=== PATIENT | male | born 1960 | race Caucasian/White ===

== ENCOUNTER 2020-11-24 00:31 | Inpatient (IN) | payer OTHER ==
[~2020-11-24] VITALS: Ht 182.9 cm; Wt 101.6 kg
[~2020-11-24 00:31] MED LIST: ADULT LOW DOSE81 MG PO; CLONIDINE HCL0.3 MG PO; CLOPIDOGREL75 MG PO; COREG12.5 MG PO; CRESTOR20 MG PO; IMDUR ER TAB 6060 MG PO; ISOSORBIDE MONO30 MG PO; KLONOPIN1 MG PO; NORVASC10 MG PO; PROZAC40 MG PO; VENTOLIN HFA 66.7 GM INH; ZESTRIL 40 MG T40 MG PO
[2020-11-24 00:54] LABS: HEMOGLOBIN 14.2 gm/dl (14.0-17.5); RED BLOOD COUNT 4.64 M/UL (4.20-5.50); WHITE BLOOD COUNT 6.7 K/UL (4.5-11.0)
[2020-11-24 01:12] LABS: BUN/CREATININE RATIO 24 (0-10)
[2020-11-24] MEDS ORDERED: NITROSTAT0.4 MG SL (11:14)
[2020-11-24] MEDS ORDERED: DAILY VITE1 EACH PO (11:17)
[2020-11-25 02:08] LABS: HEMOGLOBIN 12.4 gm/dl (14.0-17.5); WHITE BLOOD COUNT 6.7 K/UL (4.5-11.0)
[2020-11-25 02:11] LABS: RED BLOOD COUNT 4.12 M/UL (4.20-5.50)
[2020-11-25 02:34] LABS: BUN/CREATININE RATIO 16 (0-10)
[2020-11-25] MEDS ORDERED: PROZAC40 MG PO (15:15)
[2020-11-25] MEDS ORDERED: VENTOLIN HFA 66.7 GM INH (15:15)
[2020-11-25] MEDS ORDERED: ISOSORBIDE MONO60 MG PO (15:15)
[2020-11-25] MEDS ORDERED: NORVASC10 MG PO (15:15)
[2020-11-25] MEDS ORDERED: CLOPIDOGREL75 MG PO (15:15)
[2020-11-25] MEDS ORDERED: ADULT LOW DOSE81 MG PO (15:15)
[2020-11-25] MEDS ORDERED: ZESTRIL 40 MG T40 MG PO (15:15)
[2020-11-25] MEDS ORDERED: COREG12.5 MG PO (15:15)
[2020-11-25] MEDS ORDERED: NITROSTAT0.4 MG SL (15:15)
[2020-11-25] MEDS ORDERED: CRESTOR20 MG PO (15:15)
[2020-11-25] MEDS ORDERED: KLONOPIN1 MG PO (15:18)
== END 2020-11-25 16:15 | disposition home or self-care (01) | DRG 246 ==
LOC: ER1 00:31 → PROG CARE 01:31 → CDU 01:31 → PROG CARE 05:12
PROVIDERS: Emergency Medicine; Internal Medicine Interventional Cardiology; ADMIT Internal Medicine
PROC: 027034Z Dilation of Coronary Artery, One Artery with Drug-eluting Intraluminal Device, Percutaneous Approach (ICD-10-PCS; principal; 2020-11-24)
PROC: 4A023N7 Measurement of Cardiac Sampling and Pressure, Left Heart, Percutaneous Approach (ICD-10-PCS; 2020-11-24)
PROC: B2111ZZ Fluoroscopy of Multiple Coronary Arteries using Low Osmolar Contrast (ICD-10-PCS; 2020-11-24)
PROC: B2151ZZ Fluoroscopy of Left Heart using Low Osmolar Contrast (ICD-10-PCS; 2020-11-24)
DX: I97.190 Other postprocedural cardiac functional disturbances following cardiac surgery (principal); I21.A9 Other myocardial infarction type; T82.855A Stenosis of coronary artery stent, initial encounter; I25.110 Atherosclerotic heart disease of native coronary artery with unstable angina pectoris; Y71.8 Miscellaneous cardiovascular devices associated with adverse incidents, not elsewhere classified; I10 Essential (primary) hypertension; E78.5 Hyperlipidemia, unspecified; F41.9 Anxiety disorder, unspecified; F32.9 Major depressive disorder, single episode, unspecified; I16.0 Hypertensive urgency; Z20.822 Contact with and (suspected) exposure to COVID-19; Z82.49 Family history of ischemic heart disease and other diseases of the circulatory system; Z98.890 Other specified postprocedural states; F17.210 Nicotine dependence, cigarettes, uncomplicated; Z79.82 Long term (current) use of aspirin; Z79.4 Long term (current) use of insulin; Z79.899 Other long term (current) drug therapy
CPT/HCPCS: 36415; 71045; 80048; 80053; 82550; 82553; 83874; 84484; 85025; 85027; 85347; 85610; 85730; 93005; 96374; 96375; 99152; 99153; 99285; C1725; C1760; C1769; C1874; C1887; C9600; J0461; J1644; J2250; J3010; J7030; Q9963; Q9967; U0002

== ENCOUNTER → 2021-02-11 | Outpatient (CLI) | payer OTHER ==
[~2021-02-11] MED LIST changes: +ASPIRIN EC81 MG PO; +ATORVASTATIN CA20 MG PO; +BRILINTA 90 MG90 MG PO; +CLONAZEPAM1 MG PO; +CLONIDINE HCL0.2 MG PO; +CRESTOR40 MG PO; +DAILY VITE1 EACH PO; +ISOSORBIDE MON120 MG PO; +ISOSORBIDE MONO60 MG PO; +LOSARTAN-HCTZ1 EAC1 PO; +MEN'S MULTIVIT1 EACH PO; +NICOTINE PATCH1 EAC2 TOP; +NITROGLYCERIN0.4 MG SL; +NITROSTAT0.4 MG SL; +VITAMIN D31250 MCG PO
== END ==
LOC: HEART 5 13:25
DX: I25.10 Atherosclerotic heart disease of native coronary artery without angina pectoris (principal); R00.2 Palpitations

== ENCOUNTER → 2021-02-13 | Outpatient (CLI) | payer OTHER | LOC: ECHO 11:00 | DX: I25.10 Atherosclerotic heart disease of native coronary artery without angina pectoris (principal); I07.1 Rheumatic tricuspid insufficiency | CPT/HCPCS: ECHO; 93306 ==

== ENCOUNTER 2021-02-24 03:12 | Observation (INO) | payer OTHER ==
[~2021-02-24] VITALS: Ht 188 cm; Wt 84.4 kg
[~2021-02-24 03:12] MED LIST changes: -ASPIRIN EC81 MG PO; -ATORVASTATIN CA20 MG PO; -BRILINTA 90 MG90 MG PO; -CLONAZEPAM1 MG PO; -CLONIDINE HCL0.2 MG PO; -CRESTOR40 MG PO; -ISOSORBIDE MON120 MG PO; -LOSARTAN-HCTZ1 EAC1 PO; -MEN'S MULTIVIT1 EACH PO; -NICOTINE PATCH1 EAC2 TOP; -NITROGLYCERIN0.4 MG SL; -VITAMIN D31250 MCG PO
[2021-02-24 04:04] LABS: HEMOGLOBIN 14.6 gm/dl (14.0-17.5); RED BLOOD COUNT 4.76 M/UL (4.20-5.50); WHITE BLOOD COUNT 8.9 K/UL (4.5-11.0)
[2021-02-24] MEDS ORDERED: ISOSORBIDE MON120 MG PO (09:13)
[2021-02-24] MEDS ORDERED: MEN'S MULTIVIT1 EACH PO (09:16)
[2021-02-24] MEDS ORDERED: CRESTOR40 MG PO (09:16)
[2021-02-24] MEDS ORDERED: VITAMIN D31250 MCG PO (09:17)
[2021-02-24] MEDS ORDERED: CLONAZEPAM1 MG PO (09:19)
[2021-02-24] MEDS ORDERED: CLONIDINE HCL0.2 MG PO (09:26)
[2021-02-24] MEDS ORDERED: LOSARTAN-HCTZ1 EAC1 PO (09:38)
[2021-02-24 18:18] LABS: HEMOGLOBIN 13.6 gm/dl (14.0-17.5); RED BLOOD COUNT 4.45 M/UL (4.20-5.50); WHITE BLOOD COUNT 7.4 K/UL (4.5-11.0)
[2021-02-24 18:34] LABS: BUN/CREATININE RATIO 23 (0-10)
[2021-02-25 02:23] LABS: HEMOGLOBIN 14.2 gm/dl (14.0-17.5); RED BLOOD COUNT 4.67 M/UL (4.20-5.50); WHITE BLOOD COUNT 9.1 K/UL (4.5-11.0)
[2021-02-25 02:43] LABS: BUN/CREATININE RATIO 25 (0-10)
[2021-02-25] MEDS ORDERED: ATORVASTATIN CA20 MG PO (08:57)
[2021-02-25] MEDS ORDERED: BRILINTA 90 MG90 MG PO (09:45)
[2021-02-25] MEDS ORDERED: NITROGLYCERIN0.4 MG SL (09:45)
[2021-02-25] MEDS ORDERED: ASPIRIN EC81 MG PO (09:45)
[2021-02-25] MEDS ORDERED: NICOTINE PATCH1 EAC2 TOP (09:45)
== END 2021-02-25 11:30 | disposition home or self-care (01) ==
LOC: ER1 03:12 → CDU 04:55 → PROG CARE 04:55
PROVIDERS: Internal Medicine Interventional Cardiology; Physician Assistant Medical; ADMIT Internal Medicine
DX: I21.4 Non-ST elevation (NSTEMI) myocardial infarction (principal); I25.10 Atherosclerotic heart disease of native coronary artery without angina pectoris; N17.9 Acute kidney failure, unspecified; I11.9 Hypertensive heart disease without heart failure; E78.5 Hyperlipidemia, unspecified; N40.0 Benign prostatic hyperplasia without lower urinary tract symptoms; F32.9 Major depressive disorder, single episode, unspecified; F41.9 Anxiety disorder, unspecified; F17.210 Nicotine dependence, cigarettes, uncomplicated; Z20.822 Contact with and (suspected) exposure to COVID-19; Z95.5 Presence of coronary angioplasty implant and graft
CPT/HCPCS: 36415; 71045; 80048; 80053; 80061; 82550; 82553; 83036; 83735; 83874; 83880; 84100; 84439; 84443; 84484; 85025; 85027; 85347; 85610; 93005; 99152; 99153; 99285; C1725; C1769; C1874; C1887; C9600; G0378; J1644; J2250; J3010; J7030; J7040; Q9965; Q9967; U0002

== ENCOUNTER → 2021-11-20 | Outpatient (CLI) | payer OTHER ==
[~2021-11-20] MED LIST changes: +ASPIRIN EC81 MG PO; +ATORVASTATIN CA20 MG PO; +BRILINTA 90 MG90 MG PO; +CLONAZEPAM1 MG PO; +CLONIDINE HCL0.2 MG PO; +CRESTOR40 MG PO; +ISOSORBIDE MON120 MG PO; +LOSARTAN-HCTZ1 EAC1 PO; +MEN'S MULTIVIT1 EACH PO; +NICOTINE PATCH1 EAC2 TOP; +NITROGLYCERIN0.4 MG SL; +VITAMIN D31250 MCG PO
[2021-11-21 08:14] LABS: CREATININE, URINE 46.3 mg/dL (Not Estab.)
== END ==
LOC: US 13:11
PROVIDERS: Internal Medicine Nephrology
DX: I10 Essential (primary) hypertension (principal)
CPT/HCPCS: 36415; 80053; 81001; 82043; 82570; 84156

== ENCOUNTER → 2022-02-15 | Outpatient (CLI) | payer OTHER | LOC: EXRD 09:36 | DX: M25.561 Pain in right knee (principal); M25.562 Pain in left knee | CPT/HCPCS: 73564 ==

== ENCOUNTER → 2022-03-12 | Outpatient (CLI) | payer OTHER | LOC: US 08:30 | DX: I10 Essential (primary) hypertension (principal) | CPT/HCPCS: 93975 ==

== ENCOUNTER 2022-03-19 13:31 | Inpatient (IN) | payer OTHER ==
[~2022-03-19 13:31] MED LIST changes: -ISOSORBIDE MON120 MG PO
[2022-03-19 14:08] LABS: HEMOGLOBIN 14.2 gm/dl (14.0-17.5); RED BLOOD COUNT 4.75 M/UL (4.20-5.50); WHITE BLOOD COUNT 5.9 K/UL (4.5-11.0)
[2022-03-19] MEDS ORDERED: PROAIR HFA8.5 GM INH (14:36)
[2022-03-19] MEDS ORDERED: FLOMAX 0.4 MG0.4 MG PO (14:37)
[2022-03-19] MEDS ORDERED: ROPINIROLE HCL0.5 MG PO (14:38)
[2022-03-19] MEDS ORDERED: CARVEDILOL6.25 MG PO (14:38)
[2022-03-19] MEDS ORDERED: HYDROCHLOROTHIA50 MG PO (14:38)
[2022-03-19] MEDS ORDERED: NIFEDIPINE ER60 MG PO (14:38)
[2022-03-19] MEDS ORDERED: ZOLPIDEM TARTRA10 MG PO (14:38)
[2022-03-19] MEDS ORDERED: FLUOXETINE HCL40 MG PO (14:39)
[2022-03-19] MEDS ORDERED: LOSARTAN POTAS100 MG PO (14:39)
[2022-03-19] MEDS ORDERED: BRILINTA90 MG PO (14:39)
[2022-03-19] MEDS ORDERED: NITROGLYCERIN0.4 MG SL (14:40)
[2022-03-19] MEDS ORDERED: MIRALAX17 GM PO (14:40)
[2022-03-19] MEDS ORDERED: AMLODIPINE BESY10 MG PO (14:40)
[2022-03-19] MEDS ORDERED: CLOPIDOGREL75 MG PO (14:40)
[2022-03-19] MEDS ORDERED: ASPIRIN EC81 MG PO (14:40)
[2022-03-19] MEDS ORDERED: CRESTOR40 MG PO (14:41)
[2022-03-19] MEDS ORDERED: CEPHALEXIN500 MG PO (14:42)
[2022-03-19] MEDS ORDERED: BACTRIM DS TAB1 EACH PO (14:42)
== END 2022-03-20 14:18 | disposition home or self-care (01) | DRG 251 ==
LOC: ER1 13:31 → CDU 13:32
PROVIDERS: Emergency Medicine; ADMIT Internal Medicine Interventional Cardiology
PROC: 4A023N7 Measurement of Cardiac Sampling and Pressure, Left Heart, Percutaneous Approach (ICD-10-PCS; principal; 2022-03-19)
PROC: 02703ZZ Dilation of Coronary Artery, One Artery, Percutaneous Approach (ICD-10-PCS; 2022-03-19)
PROC: B2111ZZ Fluoroscopy of Multiple Coronary Arteries using Low Osmolar Contrast (ICD-10-PCS; 2022-03-19)
DX: I21.09 ST elevation (STEMI) myocardial infarction involving other coronary artery of anterior wall (principal); I42.9 Cardiomyopathy, unspecified; I10 Essential (primary) hypertension; Z20.822 Contact with and (suspected) exposure to COVID-19; I25.10 Atherosclerotic heart disease of native coronary artery without angina pectoris; E78.5 Hyperlipidemia, unspecified; F17.210 Nicotine dependence, cigarettes, uncomplicated; N40.0 Benign prostatic hyperplasia without lower urinary tract symptoms; F32.A Depression, unspecified; F41.9 Anxiety disorder, unspecified; Z95.5 Presence of coronary angioplasty implant and graft; Z90.49 Acquired absence of other specified parts of digestive tract; Z98.890 Other specified postprocedural states; Z82.49 Family history of ischemic heart disease and other diseases of the circulatory system; Z82.5 Family history of asthma and other chronic lower respiratory diseases; Z79.01 Long term (current) use of anticoagulants; Z79.82 Long term (current) use of aspirin
CPT/HCPCS: 80053; 82550; 82553; 84484; 85025; 85347; 85610; 85730; 92920; 93005; 99152; 99153; 99285; C1725; C1769; C1887; J0360; J0461; J1644; J2250; J2270; J2370; J7040; Q9965

== ENCOUNTER → 2022-05-12 | Outpatient (CLI) | payer OTHER ==
[~2022-05-12] MED LIST changes: +AMLODIPINE BESY10 MG PO; +BACTRIM DS TAB1 EACH PO; +BRILINTA90 MG PO; +CARVEDILOL6.25 MG PO; +CEPHALEXIN500 MG PO; +FLOMAX 0.4 MG0.4 MG PO; +FLUOXETINE HCL40 MG PO; +HYDROCHLOROTHIA50 MG PO; +LOSARTAN POTAS100 MG PO; +MIRALAX17 GM PO; +NIFEDIPINE ER60 MG PO; +PROAIR HFA8.5 GM INH; +ROPINIROLE HCL0.5 MG PO; +ZOLPIDEM TARTRA10 MG PO
== END ==
LOC: HEART 5 12:55
DX: I25.10 Atherosclerotic heart disease of native coronary artery without angina pectoris (principal); I50.9 Heart failure, unspecified; R07.89 Other chest pain
CPT/HCPCS: 93306